=== PATIENT | male | born 1945 | race Caucasian/White ===

== ENCOUNTER 2017-03-03 11:53 | Emergency (ER) | payer MEDICARE, OTHER ==
[2017-03-03] MEDS ORDERED: LEVOFLOXACIN/D5W 750 MG/150 ML BAG IV ONE (12:17)
--- NOTE | 2017-03-03 12:18 | ERNOTE ---
Integumentary HPI - Narrative Date of Service: 03/03/17 - General Presenting Symptoms: other - Cellulitis Time Seen by Provider: 03/03/17 12:08 Source: patient, family, RN notes reviewed Exam Limitations: no limitations - Immun/Allergies/Home Medications Immunizations: IMMUNIZATION HX Immunizations Up to Date Yes History of Influenza Vaccine No Hx Pneumococcal Vaccination No Allergies/Adverse Reactions: Allergies Allergy/AdvReac Type Severity Reaction Status Date / Time No Known Allergies Allergy Verified 03/03/17 12:03 Home Medications: HOME MEDICATIONS Terazosin HCl 10 mg PO DAILY 10/24/16 [Last Taken Unknown] Cetirizine HCl [Zyrtec] 10 mg PO DAILY 03/03/17 [Last Taken Unknown] Ciprofloxacin HCl/Dexameth [Ciprodex Otic Suspension] 10 drop OT BID 03/03/17 [ Last Taken Unknown] Clindamycin HCl [Cleocin HCl] 300 mg PO Q8H 03/03/17 [Last Taken Unknown] Hydrochlorothiazide 50 mg PO DAILY 03/03/17 [Last Taken Unknown] Lisinopril [Zestril] 40 mg PO DAILY 03/03/17 [Last Taken Unknown] Prednisone 20 mg PO DAILY 03/03/17 [Last Taken Unknown] - History of Present Illness Narrative: 71 year old male ambulatory to the ED for increasing redness on the right side of his face. He saw his PCP, Dr. Panda, yesterday and was diagnosed with cellulitis. He was started on clindamycin, prednisone, and cipro eye and ear drops. He contacted the office this morning because the redness was getting closer to his eye and was told to come here. He wears a hearing aid in his right ear and has had cellulitis of the outer ear related to it once before. He denies any fever or chills today. He states that he did have flu like symptoms a few days ago before the ear became inflammed. Location: Reports: facial Quality: Denies: itching, painful Prior Treatment: Reports: recently seen, treated by physician, currently on antibiotics Review of Systems - Review of Systems Constitutional: Absent: fever, chills, malaise EYE: Absent: eye pain, eye discharge, vision changes ENT: Absent: ear pain, ear discharge, nose congestion, nasal drainage, sore throat Respiratory: Absent: shortness of breath, cough Cardiology: Present: no symptoms reported Gastrointestinal/Abdominal: Absent: nausea, abdominal pain Genitourinary: Present: no symptoms reported Musculoskeletal: Absent: muscle pain, neck pain, joint pain Skin: Present: change in color. Absent: lesions, lumps Neurological: Absent: headache, dizziness/light-headedness Endocrine: Present: no symptoms reported Hematologic/Lymphatic: Present: no symptoms reported Psych: Present: no symptoms reported - Patient's Past Medical History Patient History - Medical: Cataracts Patient History - Cardiac/Respiratory: Hypertension Patient History - Cancer: No Hx of Cancer Patient History - Surgical Procedures: Cataracts, Orthopedic Patient History - Other: None - Social History Living Situations: spouse Abuse History: No History of abuse Psych History: No pertinent hx Smoking Status: Former smoker Alcohol Use: none Drug Use: none - Immunizations Immunizations Up to Date: Yes Hx Pneumococcal Vaccination: No History of Influenza Vaccine: No Physical Exam - Physical Exam General Appearance: Present: wd/wn, alert, no apparent distress Eye Exam: Normal inspection: bilateral, PERRL: bilateral, EOMI: bilateral - No pain with EOMI, Other: bilateral - No eyelid inflammation Ears, Nose, Throat: Present: normal pharynx, other - Severe edema and erythema to right external ear, no inflammation present in ear canal . Absent: abnormal TM (R), abnormal TM (L), nasal congestion, pharyngeal erythema Neck: Present: normal inspection, nontender, supple. Absent: lymphadenopathy (R ), lymphadenopathy (L) Respiratory: Present: no respiratory distress, normal breath sounds, no accessory muscle use, lungs clear Cardiovascular/Chest: Present: regular rate, rhythm, no murmur, normal peripheral pulses Extremity Exam: Present: normal inspection, normal range of motion, no edema Neurological Exam: Present: alert, oriented, normal mood/affect, no motor/ sensory deficits Skin Exam: Present: warm/dry, other - Severe erythema to right external ear extending onto right side of face, right eye not effected ED Progress - Results and Orders Patient's Lab Results:: I have reviewed the patient's lab results. Results and Orders: Laboratory Tests 03/03/17 03/03/17 03/03/17 12:25 12:25 12:25 WBC 7.5 RBC 5.01 Hgb 15.4 Hct 43.7 Plt Count 198 Neutrophils % 84.8 H Lymphocytes % 9.3 L Neutrophils # 6.4 H Lymphocytes # 0.7 L BUN 18 Creatinine 1.31 Est GFR (Non-Af Amer) 57 L Random Glucose 129 H Lactic Acid, Venous 0.9 - Vital Signs Patient's Vital Signs:: I have reviewed the patient's vital signs. Vital Signs: Vital Signs 03/03/17 11:59 Temperature 36.5 C Pulse Rate 73 Respiratory 16 Rate Blood Pressure 156/79 O2 Sat by Pulse 91 Oximetry - Progress/Reassessment Chief Complaint: Rash Plan - Plan Plan: Patient is afebrile and WBC and lactic acid are WNL. Levaquin given IVPB. Blood culture pending. Will continue po clindamycin - reassured patient that this antibiotic is appropriate but had likely just not had time to effect any improvement. Will stop prednisone. Departure Clinical Impression: Cellulitis of face Cellulitis of external ear Qualifiers: Laterality: right Qualified Code(s): H60.11 - Cellulitis of right external ear - Departure Disposition: Home Follow Up Needed Condition: Stable Instructions: Cellulitis, Adult, [id number] Additional Instructions: Continue clindamycin (antibiotic) but stop prednisone (steroid) Warm, moist compresses may be beneficial Leave your hearing aid out as much as possible until redness and swelling improve Return to ER for fever, vomiting, worsening pain, or other concerning symptoms Referrals: Camryn Panda, DO [Primary Care Provider] -
[2017-03-03 12:39] LABS: Hematocrit 43.7 % (42.0-52.0); Hemoglobin 15.4 gm/dL (13.5-18.0); Mean Cell Volume 87.2 fl (78-100); Mean Corpuscular Hemoglobin 30.7 pg (27-31); Mean Corpuscular Hgb Conc 35.2 g/dl (32-36); Mean Platelet Volume 9.5 fl (6.0-9.5); Neutrophil # 6.4 K/mm3 (1.3-6.0); Neutrophil % 84.8 % (42-75.0); Platelet Count 198 K/mm3 (150-450); Red Blood Count 5.01 M/mm3 (4.7-6.0); Red Cell Distribution Width 13.3 % (11.5-14.0); White Blood Count 7.5 K/mm3 (4.0-10.5)
[2017-03-03 12:51] LABS: Albumin * 3.8 gm/dl (3.4-5.0); BUN/Creatinine Ratio 13.7 (9.0-21.6); Bilirubin, Total 0.7 mg/dL (0.0-1.1); Ca. Corrected For Albumin 8.3 mg/dL (8.4-10.2); Calcium * 8.5 mg/dL (7.9-10.9); Potassium 3.6 mmol/L (3.4-4.6); Total Protein 8.1 gm/dL (6.2-8.2)
[2017-03-03 12:58] LABS: Anion Gap 13.6 mmol/L (6.8-13.8)
[2017-03-03 14:05] VITALS: BP 138/65
== END 2017-03-03 14:05 | disposition home or self-care (01) ==
LOC: ER 11:53
DX: L03.211 Cellulitis of face (principal); H60.11 Cellulitis of right external ear; I10 Essential (primary) hypertension

== ENCOUNTER 2017-07-01 11:19 | Emergency (ER) | payer MEDICARE, OTHER ==
[2017-07-01 11:26] VITALS: BP 189/89
--- NOTE | 2017-07-01 11:39 | ERNOTE ---
ENT HPI Date of Service: 07/01/17 Presenting Symptoms: other - earache Time Seen by Provider: 07/01/17 11:29 Source: patient, family Exam Limitations: no limitations - Immun/Allergies/Home Medications Immunizations: IMMUNIZATION HX Immunizations Up to Date No History of Influenza Vaccine No Hx Pneumococcal Vaccination No Allergies/Adverse Reactions: Allergies Allergy/AdvReac Type Severity Reaction Status Date / Time No Known Allergies Allergy Verified 03/03/17 12:03 Home Medications: HOME MEDICATIONS Terazosin HCl 10 mg PO DAILY 10/24/16 [Last Taken Unknown] Cetirizine HCl [Zyrtec] 10 mg PO DAILY 03/03/17 [Last Taken Unknown] Ciprofloxacin HCl/Dexameth [Ciprodex Otic Suspension] 10 drop OT BID 03/03/17 [ Last Taken Unknown] Clindamycin HCl [Cleocin HCl] 300 mg PO Q8H 03/03/17 [Last Taken Unknown] Hydrochlorothiazide 50 mg PO DAILY 03/03/17 [Last Taken Unknown] Lisinopril [Zestril] 40 mg PO DAILY 03/03/17 [Last Taken Unknown] Prednisone 20 mg PO DAILY 03/03/17 [Last Taken Unknown] Sulfamethoxazole/Trimethoprim [Bactrim Ds] 1 tab PO BID #20 tab 07/01/17 [Last Taken Unknown] - History of Present Illness Narrative: 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[employer] Severity: Present: moderate ENT Location: Present: ear (R) Prearrival Treatment: Present: prescription meds, other - patient taking clindamycin from preveious illness Modifying Factors - Improves: Reports: nothing Modifying Factors - Worsens: Reports: nothing Associated Symptoms - ENT: Reports: ear drainage Prior Treament: Reports: recently seen Review of Systems - Narrative Narrative: unremarkable - Review of Systems Constitutional: Present: See HPI EYE: Present: no symptoms reported ENT: Present: See HPI, ear pain Respiratory: Present: no symptoms reported Cardiology: Present: no symptoms reported Gastrointestinal/Abdominal: Present: no symptoms reported Genitourinary: Present: no symptoms reported Musculoskeletal: Present: no symptoms reported Skin: Present: no symptoms reported Neurological: Present: no symptoms reported Endocrine: Present: no symptoms reported Hematologic/Lymphatic: Present: no symptoms reported All Other Systems: All systems neg except as marked - Narrative Narrative: unremarkable - Patient's Past Medical History Patient History - Medical: Cataracts Patient History - Cardiac/Respiratory: Hypertension Patient History - Cancer: No Hx of Cancer Patient History - Surgical Procedures: Cataracts, Orthopedic Patient History - Other: None - Family History Family History:: no untoward family reactions to anesthesia, no familial bleeding tendencies, no family history of clotting disorders, no family history of premature - Social History Living Situations: home Abuse History: No History of abuse Psych History: No pertinent hx Does anyone smoke in the home?: No Smoking Status: Never smoker Have you smoked in the past 12 months: No Do you dip or chew tobacco: No Patient requests Smoking Cessation Consult: No Initiate information on Smoking Cessation: No Alcohol Use: none Drug Use: none - Immunizations Immunizations Up to Date: No Hx Pneumococcal Vaccination: No History of Influenza Vaccine: No Physical Exam - Physical Exam General Appearance: Present: mild distress Head Exam: Present: normal inspection, no evidence of injury Eye Exam: Normal inspection: bilateral, PERRL: bilateral, EOMI: bilateral Ears, Nose, Throat: Present: abnormal TM (R), nasal congestion, sinus pain/ drainage Neck: Present: normal inspection, nontender Respiratory: Present: no respiratory distress, normal breath sounds, no accessory muscle use, chest nontender, lungs clear Cardiovascular/Chest: Present: regular rate, rhythm, no murmur, normal peripheral pulses Peripheral Pulses: N=norm/S=strong/W=weak/B=bound/A=absent: Carotid (R): Normal , Carotid (L): Normal, Radial (R): Normal, Radial (L): Normal, Femoral (R): Normal, Femoral (L): Normal, Dorsalis-pedis (R): Normal, Dorsalis-pedis (L): Normal Gastrointestinal/Abdominal: Present: normal bowel sounds, nontender, nondistended, soft, no organomegaly Back Exam: Present: normal inspection, normal range of motion, no CVA tenderness , no vertebral tenderness Extremity Exam: Present: normal inspection, non-tender, normal range of motion, no edema Neurological Exam: Present: alert, oriented, normal mood/affect, no motor/ sensory deficits DTR: N=norm/NB=norm/brisk/A=abs/DD=dull/dimin/HC=hyperactive: Bicep (R): Normal , Bicep (L): Normal, Tricep (R): Normal, Tricep (L): Normal, Knee (R): Normal, Knee (L): Normal, Ankle (R): Normal, Ankle (L): Normal Skin Exam: Present: normal color, warm/dry Lymphatic Exam: Present: no adenopathy ED Progress - Date and Time Seen: Date and Time: 07/01/17 11:37 unchanged - Vital Signs Patient's Vital Signs:: I have reviewed the patient's vital signs. Vital Signs: Vital Signs 07/01/17 11:20 Temperature 36 C L Pulse Rate 75 Respiratory 20 Rate Blood Pressure 189/89 O2 Sat by Pulse 95 Oximetry - Progress/Reassessment Chief Complaint: Earache Progress:: Unchanged - Transfer of Care Expected Disposition: Discharge Plan - Plan Plan: to be discharged Departure Clinical Impression: Otitis media - Departure Disposition: Home self-care Condition: Fair Instructions: Otitis Media, Adult, [id number] Referrals: aCmryn Panda DO [Primary Care Provider] - Prescriptions: Sulfamethoxazole/Trimethoprim [Bactrim Ds] 1 tab PO BID #20 tab
== END 2017-07-01 12:00 | disposition home or self-care (01) ==
LOC: ER 11:19
DX: H66.91 Otitis media, unspecified, right ear (principal)